=== PATIENT | female | born 2000 | race Two or more races ===

== ENCOUNTER 2019-05-04 01:05 | Emergency (ER) | payer SELFPAY ==
[~2019-05-04] VITALS: Ht 157.5 cm; Wt 95.3 kg
[2019-05-04] MEDS ORDERED: NKM (01:22)
[2019-05-04 01:30] VITALS: BP 104/60
--- NOTE | 2019-05-04 01:30 | NUR ---
ED Nurse Note: Patient walked into ED c/o possible food poisoning, states that she ate turkmen food earlier yesterday at around 1400 to which she began experiencing abdominal pain. patient states that shes had 4 episodes of leaky diarrhea, complains of a pressure-like pulling pain in the lower abdomen, denies any vomiting or nausea. IV started on left AC 20 gauge, labs sent down to lab, patient placed on a monitor, VSS
[2019-05-04] MEDS ORDERED: Lidocaine 2% Visc 15ml soln ORAL ONE (01:45)
[2019-05-04] MEDS ORDERED: Dicyclomine HCl 10mg/5ml oral soln ORAL ONE (01:45)
[2019-05-04] MEDS ORDERED: Mylanta II UD 30ml ORAL ONE (01:45)
[2019-05-04 02:15] LABS: BASOPHILS % (AUTO) 0.8 % (0.0-2.0); EOSINOPHILS % (AUTO) 1.1 % (0.0-3.0); HEMATOCRIT 41.3 % (37.0-47.0); HEMOGLOBIN 13.9 G/DL (12.0-16.0); LYMPHOCYTES % (AUTO) 13.6 % (20.0-45.0); MEAN CORPUSCULAR VOLUME 92 FL (80-99); MONOCYTES % (AUTO) 6.5 % (1.0-10.0); NEUTROPHILS % (AUTO) 78.1 % (45.0-75.0); PLATELET COUNT 431 K/UL (150-450); RED BLOOD COUNT 4.48 M/UL (4.20-5.40); RED CELL DISTRIBUTION WIDTH 11.8 % (11.6-14.8); WHITE BLOOD COUNT 12.7 K/UL (4.8-10.8)
[2019-05-04 02:19] LABS: ANION GAP 10 mmol/L (5-15); BLOOD UREA NITROGEN 11 mg/dL (7-18); CALCIUM 9.2 MG/DL (8.5-10.1); CARBON DIOXIDE 26 MMOL/L (21-32); CHLORIDE 106 MMOL/L (98-107); CREATININE 0.9 MG/DL (0.55-1.30); POTASSIUM 3.5 MMOL/L (3.5-5.1); SODIUM 142 MMOL/L (136-145)
[2019-05-04 02:26] LABS: ALANINE AMINOTRANSFERASE 23 U/L (12-78); ALBUMIN/GLOBULIN RATIO 1.2 (1.0-2.7); ALKALINE PHOSPHATASE 69 U/L (46-116); ASPARTATE AMINO TRANSFERASE 22 U/L (15-37); BILIRUBIN,TOTAL 0.3 MG/DL (0.2-1.0)
[2019-05-04] MEDS ORDERED: ONDANSETRON ODT4 MG BC (02:48)
[2019-05-04] MEDS ORDERED: DICYCLOMINE HCL10 MG ORAL (02:48)
[2019-05-04] MEDS ORDERED: RANITIDINE HCL150 MG ORAL (02:48)
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
[2019-05-04 02:58] VITALS: BP 108/58
--- NOTE | 2019-05-04 05:14 | Emergency Room Report ---
History of Present Illness General Chief Complaint: Abdominal Pain Source: Patient Present Illness HPI 18-year-old female presents ED for evaluation. Complaining of abdominal pain with nausea vomiting and diarrhea. Started after eating some takeout Kiswahili food yesterday afternoon. Notes multiple episodes of watery loose stools. Pain is cramping, 8 out of 10, nonradiating. Denies fevers or chills. Denies recent travel or recent antibiotic use. No other aggravating relieving factors. Denies any other associated symptoms Allergies: Coded Allergies: No Known Allergies (Unverified , 05/04/19) Patient History Past Medical History: none Past Surgical History: none Pertinent Family History: none Social History: Denies: smoking, alcohol use, drug use Last Menstrual Period: 04/26/19 Now: No Immunizations: UTD Reviewed Nursing Documentation: PMH: Agreed; PSxH: Agreed Nursing Documentation-PMH Past Medical History: No Stated History Review of Systems All Other Systems: negative except mentioned in HPI Physical Exam Vital Signs Date Time Temp Pulse Resp B/P (MAP) Pulse Ox O2 Delivery O2 Flow Rate FiO2 05/04/19 01:18 98.2 80 18 104/60 (75) 97 Room Air Sp02 EP Interpretation: reviewed, normal General Appearance: no apparent distress, alert, GCS 15, non-toxic Head: normocephalic, atraumatic Eyes: bilateral eye normal inspection, bilateral eye PERRL ENT: hearing grossly normal, normal pharynx, no angioedema, normal voice Neck: full range of motion, supple/symm/no masses Respiratory: chest non-tender, lungs clear, normal breath sounds, speaking full sentences Cardiovascular #1: regular rate, rhythm, no edema Cardiovascular #2: 2+ carotid (R), 2+ carotid (L), 2+ radial (R), 2+ radial (L) , 2+ dorsalis pedis (R), 2+ dorsalis pedis (L) Gastrointestinal: normal bowel sounds, non tender, soft, non-distended, no guarding, no rebound Rectal: deferred Genitourinary: normal inspection, no CVA tenderness Musculoskeletal: back normal, gait/station normal, normal range of motion, non- tender Neurologic: alert, oriented x3, responsive, motor strength/tone normal, sensory intact, speech normal Psychiatric: judgement/insight normal, memory normal, mood/affect normal, no suicidal/homicidal ideation Reflexes: 3+ bicep (R), 3+ bicep (L), 3+ tricep (R), 3+ tricep (L), 3+ knee (R) , 3+ knee (L) Lymphatic: no adenopathy Medical Decision Making Diagnostic Impression: Primary Impression: Gastroenteritis ER Course Hospital Course 18-year-old F presents to ED with cramping abdominal pain with vomiting, diarrhea differential diagnosis: gastritis, SBO, cholecystits, gastroenteritis Clinical course Patient placed on stretcher. On awake overnight monitor. After initial history and physical I ordered labs, IV fluids, pepcid, zofran, GI cocktail Labs - no leukocytosis, electrolytes ok, LFTs normal, UA unremarkable Upon reassessment, states she feels better. Consideration for gastroenteritis. Stable for discharge. Will provide referrals I feel this is a highly complex case requiring extensive working including EKG/ Rhythm strip, Xray/CT/US, Blood/urine lab work, repeat exams while in ED, and administration of strong opiates/narcotics for pain control, admission to hospital or close patient follow up. Diagnosis - gastroenteritis Stable and discharged to home with prescriptions for Zantac, zofran, bentyl. Followup with PMD. Return to ED if symptoms recur or worsen Labs Test 05/04/19 01:30 White Blood Count 12.7 K/UL (4.8-10.8) Red Blood Count 4.48 M/UL (4.20-5.40) Hemoglobin 13.9 G/DL (12.0-16.0) Hematocrit 41.3 % (37.0-47.0) Mean Corpuscular Volume 92 FL (80-99) Mean Corpuscular Hemoglobin 31.1 PG (27.0-31.0) Mean Corpuscular Hemoglobin Concent 33.6 G/DL (32.0-36.0) Red Cell Distribution Width 11.8 % (11.6-14.8) Platelet Count 431 K/UL (150-450) Mean Platelet Volume 6.0 FL (6.5-10.1) Neutrophils (%) (Auto) 78.1 % (45.0-75.0) Lymphocytes (%) (Auto) 13.6 % (20.0-45.0) Monocytes (%) (Auto) 6.5 % (1.0-10.0) Eosinophils (%) (Auto) 1.1 % (0.0-3.0) Basophils (%) (Auto) 0.8 % (0.0-2.0) Urine HCG, Qualitative Negative (NEGATIVE) Sodium Level 142 MMOL/L (136-145) Potassium Level 3.5 MMOL/L (3.5-5.1) Chloride Level 106 MMOL/L (98-107) Carbon Dioxide Level 26 MMOL/L (21-32) Anion Gap 10 mmol/L (5-15) Blood Urea Nitrogen 11 mg/dL (7-18) Creatinine 0.9 MG/DL (0.55-1.30) Estimat Glomerular Filtration Rate > 60 mL/min (>60) Glucose Level 111 MG/DL (74-106) Calcium Level 9.2 MG/DL (8.5-10.1) Total Bilirubin 0.3 MG/DL (0.2-1.0) Aspartate Amino Transf (AST/SGOT) 22 U/L (15-37) Alanine Aminotransferase (ALT/SGPT) 23 U/L (12-78) Alkaline Phosphatase 69 U/L (46-116) Total Protein 7.3 G/DL (6.4-8.2) Albumin 4.0 G/DL (3.4-5.0) Globulin 3.3 g/dL Albumin/Globulin Ratio 1.2 (1.0-2.7) Lipase 132 U/L (73-393) Last Vital Signs Date Time Temp Pulse Resp B/P (MAP) Pulse Ox O2 Delivery O2 Flow Rate FiO2 05/04/19 02:58 98.2 82 18 108/58 97 Room Air Status: improved Disposition: HOME, SELF-CARE Condition: Stable Scripts Dicyclomine Hcl* (DICYCLOMINE HCL*) 10 Mg Capsule 10 MG ORAL QID, #20 CAP Prov: Zoran Olivas MD 05/04/19 Ranitidine Hcl* (ZANTAC*) 150 Mg Tablet 150 MG ORAL TWICE A DAY, #30 TAB Prov: Zoran Olivas MD 05/04/19 Ondansetron Odt* (ZOFRAN ODT*) 4 Mg Tab.rapdis 4 MG BC EVERY 6 HOURS PRN for Nausea & Vomiting, #20 TAB 0 Refills Prov: Zoran Olivas MD 05/04/19 Referrals: NON PHYSICIAN (PCP) [facility] Patient Instructions: Viral Gastroenteritis, Adult, [id number] Zoran Olivas MD May 04, 2019 05:14
== END 2019-05-04 02:58 | disposition home or self-care (01) ==
LOC: EMR 01:35
DX: K52.9 Noninfective gastroenteritis and colitis, unspecified (principal)
CPT/HCPCS: 36415; 80053; 81025; 83690; 85025; 96361; 96374; 96375; 99284; J2405; S0028

== ENCOUNTER 2019-10-30 07:19 | Emergency (ER) | payer BC ==
[~2019-10-30] VITALS: Ht 162.6 cm; Wt 59.0 kg
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
[~2019-10-30 07:19] MED LIST: DICYCLOMINE HCL10 MG ORAL; NKM; ONDANSETRON ODT4 MG BC; RANITIDINE HCL150 MG ORAL
--- NOTE | 2019-10-30 07:19 | NUR ---
ED Nurse Note: cleaned and irrigated patient laceration. prepped for suture application
[2019-10-30] MEDS ORDERED: Hydrogen Peroxide 473ml Bottle TOPIC ONE (07:22)
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
[2019-10-30 07:29] VITALS: BP 110/60
[2019-10-30] MEDS ORDERED: Lidocaine 1% 10mg/ml/Epi 0.005mg/ml 30ml vial INJ ONE (07:30)
--- NOTE | 2019-10-30 07:45 | NUR ---
ED Nurse Note: ERMD completed lac repair. Cleaned pt laceration site. cleaned dried blood from pt face
--- NOTE | 2019-10-30 07:46 | NUR ---
ED Nurse Note: Pt taken to CT
--- NOTE | 2019-10-30 07:55 | NUR ---
ED Nurse Note: Pt returned from CT
--- NOTE | 2019-10-30 08:00 | NUR ---
ED Nurse Note: [employer] at bedside; Officer Ja hernandez #[id number] interviewing pt.
--- NOTE | 2019-10-30 08:15 | NUR ---
ED Nurse Note: [employer] left bedside.
[2019-10-30] MEDS ORDERED: IBUPROFEN600 M1 PO (08:55)
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
[2019-10-30 08:58] VITALS: BP 107/65
--- NOTE | 2019-10-30 08:58 | NUR ---
ER DISCHARGE NOTE: Patient is cleared to be discharged per ERMD, pt is aox4, on room air, with stable vital signs. pt was given dc and prescription instructions, pt was able to verbalize understanding, pt id bandremoved . pt is able to ambulate with steady gait. pt took all belongings.
== END 2019-10-30 08:58 | disposition home or self-care (01) ==
LOC: EDBD 07:19 → EMR 07:40
DX: R51 Headache (principal); S01.01XA Laceration without foreign body of scalp, initial encounter; Y04.2XXA Assault by strike against or bumped into by another person, initial encounter; Y92.9 Unspecified place or not applicable
CPT/HCPCS: 70450; 99284

== ENCOUNTER 2019-11-09 11:27 | Emergency (ER) | payer BC ==
[~2019-11-09] VITALS: Ht 157.5 cm; Wt 95.3 kg
[~2019-11-09 11:27] MED LIST changes: +IBUPROFEN600 M1 PO
[2019-11-09 11:38] VITALS: BP 100/60
--- NOTE | 2019-11-09 11:55 | Emergency Room Report ---
History of Present Illness General Chief Complaint: Wound Recheck/Suture Removal Source: Patient Present Illness HPI 19-year-old female presents with suture removal had sutures placed on the ninth , presents for suture removal no pain no aggravating relieving factor severity is nonexistent patient presents for evaluation COVID-19 risk:Contact w/high r: No COVID-19 risk:Travel to affect: No Has patient experienced frost: No Allergies: Coded Allergies: No Known Allergies (Unverified , 05/04/19) Patient History Past Medical History: see triage record Last Menstrual Period: Oct 20, 2019 Now: No : 0 Para: 0 Reviewed Nursing Documentation: PMH: Agreed; PSxH: Agreed Nursing Documentation-PMH Past Medical History: No Stated History Review of Systems All Other Systems: negative except mentioned in HPI Physical Exam Vital Signs Date Time Temp Pulse Resp B/P (MAP) Pulse Ox O2 Delivery O2 Flow Rate FiO2 11/09/19 11:31 97.9 70 18 95/59 (71) 96 Room Air General Appearance: well appearing, no apparent distress Head: normocephalic, other - 3 sutures top right forehead Eyes: bilateral eye PERRL, bilateral eye EOMI ENT: hearing grossly normal, normal voice Neck: full range of motion, supple Respiratory: no respiratory distress, speaking full sentences Neurologic: alert, normal gait Psychiatric: mood/affect normal Skin: no rash Medical Decision Making Diagnostic Impression: Primary Impression: Encounter for removal of sutures ER Course 3 sutures removed from the top right forehead disposition home with return precautions follow-up with PCP Last Vital Signs Date Time Temp Pulse Resp B/P (MAP) Pulse Ox O2 Delivery O2 Flow Rate FiO2 11/09/19 11:38 98.0 80 18 100/60 97 Room Air Disposition: HOME, SELF-CARE Condition: Stable Referrals: [facility] Kyle Arroyo. [facility] Patient Instructions: Suture Removal, Care After Additional Instructions: The patient was provided with discharge instructions, notified to follow-up with a primary care doctor and or specialist in the next 24-48 hours, and to return to the ED if they have worsening of their symptoms. Please note that this report is being documented using [employer] technology. This can lead to erroneous entry secondary to incorrect interpretation by the dictating instrument. Donato Gaspar MD Nov 09, 2019 11:54
[2019-11-09 11:59] VITALS: BP 102/60
== END 2019-11-09 11:59 | disposition home or self-care (01) ==
LOC: EMR 11:45
DX: Z48.02 Encounter for removal of sutures (principal)
CPT/HCPCS: 99281